=== PATIENT | male | born 1995 | race African-American/Black ===

== ENCOUNTER 2021-04-07 04:19 | Day surgery (SDC) | payer OTHER ==
[2021-04-04 17:51] VITALS: BMI 22.8
[2021-04-07 06:52] LABS: INR 1.11 (0.83-1.09); PROTHROMBIN TIME (PATIENT) 12.4 SEC (9.7-13.0)
[2021-04-07 06:59] LABS: CALCIUM 9.2 mg/dL (8.5-10.1)
[2021-04-07 07:00] LABS: ALBUMIN 3.9 g/dl (3.4-5.0); BLOOD UREA NITROGEN 12.6 mg/dL (7-18)
[2021-04-07 07:03] LABS: CREATININE 0.9 mg/dL (0.55-1.3)
[2021-04-07 07:04] LABS: BILIRUBIN,TOTAL 0.3 mg/dL (0.2-1); TOT PROT 7.4 g/dl (6.4-8.2)
[2021-04-07 07:53] LABS: HEMATOCRIT 44.8 % (35.4-49); HEMOGLOBIN 14.8 GM/dL (11.7-16.9); MCH 24.5 pg (25.7-33.7); MEAN CELL VOLUME 74.2 fl (80-96); PLATELET COUNT 172 10^3/uL (134-434); RBC 6.03 M/mm3 (4.00-5.60); RDW 14.6 % (11.9-15.9); WHITE BLOOD COUNT 6.6 K/mm3 (4.0-10.0)
[2021-04-07] MEDS ORDERED: ceFAZolin 2 GRAM PREMIX BAG IVPB ONE (10:30)
[2021-04-07] MEDS ORDERED: oxyCODONE HCL 5 MG TABLET PO PRN (14:46)
[2021-04-07 17:43] VITALS: BP 138/84; PULSE 58; TEMP 97.4
== END 2021-04-07 17:15 | disposition home or self-care (01) ==
LOC: JASU-SURG 04:19
PROVIDERS: ATTEND Surgery
PROC: 0YU60JZ Supplement Left Inguinal Region with Synthetic Substitute, Open Approach (ICD-10-PCS; principal; 2021-04-07 09:00)
DX: K40.90 Unilateral inguinal hernia, without obstruction or gangrene, not specified as recurrent (principal)
CPT/HCPCS: 36415; 80053; 85027; 85610; 88302-TC; 94760; C9803; U0003; U0005

== ENCOUNTER 2021-12-15 15:26 | Emergency (ER) | payer OTHER ==
[2021-12-15 15:45] VITALS: BP 129/74; PULSE 76; RESP 18; TEMP 98.2; BMI 22.6
[2021-12-15] MEDS ORDERED: DIPHTH,PERTUSS(ACELL),TET 0.5 ML DISP.SYRIN IM ONE ×2 (16:30→16:36)
== END 2021-12-15 16:41 | disposition home or self-care (01) ==
LOC: JERFT 15:26
PROC: 3E0234Z Introduction of Serum, Toxoid and Vaccine into Muscle, Percutaneous Approach (ICD-10-PCS; principal; 2021-12-15)
DX: S61.412A Laceration without foreign body of left hand, initial encounter (principal); W26.8XXA Contact with other sharp object(s), not elsewhere classified, initial encounter
CPT/HCPCS: 90471; 90715; 99282-25

== ENCOUNTER 2024-01-04 09:32 | Emergency (ER) | payer BC, OTHER ==
[2024-01-04 09:49] VITALS: BP 131/85; PULSE 78; RESP 18; TEMP 98.6; BMI 23.3
[2024-01-04] MEDS ORDERED: diphenhydrAMINE HCL 25 MG CAPSULE (FP) PO ONE (10:42)
[2024-01-04] MEDS ORDERED: IBUPROFEN 400 MG TABLET (FP) PO ONE (10:42)
[2024-01-04] MEDS: IBUPROFEN 400 MG TABLET (FP) PO ONE (10:45)
[2024-01-04] MEDS: diphenhydrAMINE HCL 25 MG CAPSULE (FP) PO ONE (10:45)
== END 2024-01-04 11:26 | disposition home or self-care (01) ==
LOC: JER 09:32
DX: T63.441A Toxic effect of venom of bees, accidental (unintentional), initial encounter (principal)
CPT/HCPCS: 99283-25